=== PATIENT | female | born 1960 | race Caucasian/White ===

== ENCOUNTER 2018-06-13 05:55 | Observation (INO) | payer OTHER ==
--- OUTSIDE RECORDS SUMMARY | 2018-06-13 05:58 | XMS REPORT | Clinical Summary ---
:1960 Author Organization [facility] Address [address] [place] [address] Care Team Providers Name Role Phone Antonio Muñiz MD Primary Care Provider Allergies No Known Allergies Current Medications Prescription Sig. Disp. Refills Start Date End Date Status levothyroxine (SYNTHROID, 02/15/2017 Active LEVOXYL) 125 mcg tablet estradiol (ESTRACE) 2 MG 02/15/2017 Active tablet progesterone (PROMETRIUM) 02/15/2017 Active 100 MG capsule sertraline (ZOLOFT) 50 MG 01/27/2017 Active tablet tiZANidine (ZANAFLEX) 4 MG 01/07/2017 Active tablet telmisartan (MICARDIS) 40 01/27/2017 Active MG tablet aspirin (ECOTRIN) 81 MG Take 81 mg by Active enteric coated tablet mouth daily. cholecalciferol, vitamin Take 2,000 Units Active D3, (VITAMIN D3) 2,000 by mouth daily. unit capsule capsule Active Problems Problem Noted Date Other spondylosis with radiculopathy, lumbar region 02/15/2017 Family History Medical History Relation Name Comments Cancer Father lung Relation Name Status Comments Father Mother Social History Tobacco Use Types Packs/Day Years Used Date Never Smoker Smokeless Tobacco: Never Used Alcohol Use Drinks/Week oz/Week Comments Yes 1 Standard drinks or equivalent 0.6 Sex Assigned at Date Recorded Not on file Last Filed Vital Signs Not on file Plan of Treatment Health Maintenance Due Date Last Done Comments CERVICAL CANCER SCREENING 1982 BREAST CANCER SCREENING 2011 COLON CANCER SCREENING 2011 SHINGRIX VACCINE (#1) 2011 INFLUENZA VACCINE 06/11/2018 Results Not on fileafter 06/12/2017 Insurance Payer Benefit Plan / Group Subscriber ID Type Phone Address [facility] CHOICE/CHOICE + xxxxxxxxx HMO/PPO [place] JUDY [phone] [place] [phone]
[2018-06-13 06:21] LABS: Absolute Monocytes 0.4 K/uL (0.1-1.3); Absolute Neutrophil 3.6 K/uL (1.8-8.0); Basophils % 0.8 % (0-1.3); Eosinophils % 4.7 % (0-4.4); Hematocrit 39.8 % (36.0-45.0); Lymphocytes % 31.4 % (15.3-44.8); MCH 31.6 pg (27.0-35.0); MCV 89.3 fL (80-100); MPV 9.2 fL (7.6-11.3); Monocytes % 6.9 % (3.3-12.3); RBC Red Blood Cell Count 4.45 M/uL (3.86-4.86)
[2018-06-13] MEDS ORDERED: NITROGLYCERIN 0.4 MG/TAB SL ONE (06:41)
[2018-06-13] MEDS ORDERED: ASPIRIN 81 MG CHEWABLE TABLET ONE (06:41)
[2018-06-13 06:42] LABS: Protime INR 0.93
[2018-06-13 06:54] LABS: Albumin 3.7 g/dL (3.4-5.0); Bilirubin Direct 0.1 mg/dL (0-0.2); Bilirubin Total 0.5 mg/dL (0.2-1.0); CKMB Creatine Kinase MB 2.7 ng/mL (0.3-3.6); Magnesium 1.9 mg/dL (1.8-2.4); Potassium 3.9 mmol/L (3.5-5.1); Protein, Total 7.6 g/dL (6.4-8.2)
--- NOTE | 2018-06-13 07:10 | EDPHYS ---
Physician Documentation [facility] Name: Swathi Jay Age: 57 yrs Sex: Female : 1960 Arrival Date: 06/13/2018 Time: 05:56 Bed 18 Private MD: Antonio Muñiz V ED Physician Mumtaz Toney HPI: 06/13 06:33 This 57 yrs old Female presents to ER via Ambulatory with complaints of Chest jr8 Pain. 06:33 Onset: The symptoms/episode began/occurred acutely, this morning, today. Associated jr8 signs and symptoms: Pertinent positives: shortness of breath, nausea. Modifying factors: The patient symptoms are alleviated by nothing, the patient symptoms are aggravated by nothing. The patient has not experienced similar symptoms in the past. The patient has not recently seen a physician. While driving to gym had sudden onset chest pain with shortness of breath . Historical: - Allergies: 06:05 Demerol; bb - Home Meds: 06:14 Celecoxib Oral [Active]; levothyroxine oral [Active]; sertraline 50 mg oral tab 1 tab bb once daily [Active]; telmisartan 40 mg oral tab 1 tab once daily [Active]; aspirin 81 mg Oral chew 1 tab once daily [Active]; HRT [Active]; - PMHx: 06:05 Diabetes - NIDDM; Hypertension; bb - PSHx: 06:05 knee replacement; oophorectomy; bb - Immunization history:: Adult Immunizations up to date. - Social history:: Smoking status: Patient/guardian denies using tobacco, Patient/guardian denies using alcohol, street drugs. - Ebola Screening: : No symptoms or risks identified at this time. ROS: 06:33 Eyes: Negative for injury, pain, redness, and discharge, ENT: Negative for injury, jr8 pain, and discharge, Neck: Negative for injury, pain, and swelling, Abdomen/GI: Negative for abdominal pain, nausea, vomiting, diarrhea, and constipation, Back: Negative for injury and pain, MS/Extremity: Negative for injury and deformity, Skin: Negative for injury, rash, and discoloration, Neuro: Negative for headache, weakness, numbness, tingling, and seizure. 06:33 Cardiovascular: Positive for chest pain, Negative for edema, orthopnea, palpitations, paroxysmal nocturnal dyspnea. 06:33 Respiratory: Positive for shortness of breath, Negative for cough, dyspnea on exertion, hemoptysis, orthopnea, pleurisy, sputum production, wheezing. 06:33 Abdomen/GI: Positive for nausea, Negative for abdominal pain, vomiting, diarrhea, constipation, abdominal cramps, abdominal distension. Exam: 06:33 Eyes: Pupils equal round and reactive to light, extra-ocular motions intact. Lids and jr8 lashes normal. Conjunctiva and sclera are non-icteric and not injected. Cornea within normal limits. Periorbital areas with no swelling, redness, or edema. ENT: Nares patent. No nasal discharge, no septal abnormalities noted. Tympanic membranes are normal and external auditory canals are clear. Oropharynx with no redness, swelling, or masses, exudates, or evidence of obstruction, uvula midline. Mucous membranes moist. Neck: Trachea midline, no thyromegaly or masses palpated, and no cervical lymphadenopathy. Supple, full range of motion without nuchal rigidity, or vertebral point tenderness. No Meningismus. Chest/axilla: Normal chest wall appearance and motion. Nontender with no deformity. No lesions are appreciated. Cardiovascular: Regular rate and rhythm with a normal S1 and S2. No gallops, murmurs, or rubs. Normal PMI, no JVD. No pulse deficits. Respiratory: Lungs have equal breath sounds bilaterally, clear to auscultation and percussion. No rales, rhonchi or wheezes noted. No increased work of breathing, no retractions or nasal flaring. Abdomen/GI: Soft, non-tender, with normal bowel sounds. No distension or tympany. No guarding or rebound. No evidence of tenderness throughout. Back: No spinal tenderness. No costovertebral tenderness. Full range of motion. Skin: Warm, dry with normal turgor. Normal color with no rashes, no lesions, and no evidence of cellulitis. MS/ Extremity: Pulses equal, no cyanosis. Neurovascular intact. Full, normal range of motion. Neuro: Awake and alert, GCS 15, oriented to person, place, time, and situation. Cranial nerves II-XII grossly intact. Motor strength 5/5 in all extremities. Sensory grossly intact. Cerebellar exam normal. Normal gait. 06:33 ECG was reviewed by the Attending Physician. Vital Signs: 06:05 BP 177 / 92; Pulse 80; Resp 20 S; Temp 97.7(O); Pulse Ox 100% on R/A; Weight 86.18 kg bb (R); Height 5 ft. 3 in. (160.02 cm) (R); Pain 9/10; 06:30 BP 139 / 81; Pulse 64; Resp 18 S; Pulse Ox 100% on R/A; bs1 06:41 BP 122 / 73; Pulse 66; Resp 18 S; Pulse Ox 99% on R/A; bs1 06:50 BP 113 / 72; Pulse 73; Resp 17; Pulse Ox 100% on R/A; Pain 2/10; bs1 06:53 BP 113 / 72; Pulse 73; Pain 2/10; bs1 08:10 BP 122 / 68; Pulse 58; Resp 17; Pulse Ox 98% on R/A; tw2 08:24 BP 133 / 69; Pulse 58; Resp 14; Pulse Ox 99% on R/A; tw2 06:05 Body Mass Index 33.66 (86.18 kg, 160.02 cm) MDM: 06:18 Patient medically screened. jr8 07:03 Data reviewed: vital signs, nurses notes, lab test result(s), EKG, radiologic studies, jr8 plain films, and as a result, I will admit patient. Data interpreted: Pulse oximetry: on room air is 100 %. Interpretation: normal. Counseling: I had a detailed discussion with the patient and/or guardian regarding: the historical points, exam findings, and any diagnostic results supporting the discharge/admit diagnosis, lab results, radiology results, the need for further work-up and treatment in the hospital. 07:04 Differential diagnosis: abnormal EKG, acute myocardial infarction, anxiety, chest wall jr8 pain, congestive heart failure costochondritis, esophagitis, gastritis, gastroesophageal reflux disease (GERD), pancreatitis, pericarditis, pleurisy, pneumonia, pneumothorax, pulmonary embolus, stable angina, thoracic aortic disection, unstable angina. HEART Score: History: Moderately Suspicious (1), ECG: Normal (0), Age: > 45 and < 65 years (1), Risk Factors: > or = 3 Risk factors for atherosclerotic disease (2), [Hypertension] [DM] [Obesity]. The patient was given aspirin in the Emergency Department. 07:10 ED course: Dr. Muñiz was notified about admission at 07:10. Message left to call us jr8 back in ED . 06/13 05:59 Order name: Basic Metabolic Panel; Complete Time: 06:55 tl2 06/13 05:59 Order name: CBC with Diff; Complete Time: 06:32 tl2 06/13 05:59 Order name: Ckmb; Complete Time: 06:55 tl2 06/13 05:59 Order name: CPK; Complete Time: 06:55 tl2 06/13 05:59 Order name: LFT's; Complete Time: 06:55 tl2 06/13 05:59 Order name: Magnesium; Complete Time: 06:55 tl2 06/13 05:59 Order name: NT PRO-BNP; Complete Time: 06:55 tl2 06/13 05:59 Order name: PT-INR; Complete Time: 06:55 tl2 06/13 05:59 Order name: Ptt, Activated; Complete Time: 06:55 tl2 06/13 05:59 Order name: Troponin (emerg Dept Use Only); Complete Time: 06:55 tl2 06/13 05:59 Order name: XRAY Chest (1 view); Complete Time: 07:47 tl2 06/13 06:35 Order name: DD; Complete Time: 07:03 jr8 06/13 05:59 Order name: EKG; Complete Time: 06:00 tl2 06/13 05:59 Order name: Cardiac monitoring; Complete Time: 06:09 tl2 06/13 05:59 Order name: EKG - Nurse/Tech; Complete Time: 06:09 tl2 06/13 05:59 Order name: IV Saline Lock; Complete Time: 06:09 tl2 06/13 06:00 Order name: Labs collected and sent; Complete Time: 06:09 tl2 06/13 06:00 Order name: O2 Per Protocol; Complete Time: 06:09 tl2 06/13 06:00 Order name: O2 Sat Monitoring; Complete Time: 06:09 tl2 06/13 07:15 Order name: CONS Physician Consult EDMS EC:33 Rate is 76 beats/min. Rhythm is regular, Normal Sinus Rhythm. QRS [place] is Normal. [place] jr8 interval is normal at 150 msec. QRS interval is normal at 82 msec. QT interval is normal at 465 msec. Q waves are Present in leads III, V3. T waves are Inverted in lead III. No ST changes noted. Clinical impression: NSR w/ Non-specific ST/T Changes. Interpreted by me. Reviewed by me. Administered Medications: 06:35 Drug: Aspirin Chewable Tablet 324 mg Route: PO; bs1 06:54 Follow up: Response: No adverse reaction bs1 06:35 Drug: Nitroglycerin 0.4 mg Route: Sublingual; bs1 06:40 Drug: Nitroglycerin 0.4 mg Route: Sublingual; bs1 06:53 Follow up: BP 113 / 72; Pulse 73 bpm; Pain 2/10 Adult; Response: No adverse reaction bs1 Point of Care Testing: Blood Glucose: 06:08 Blood Glucose: 132 mg/dL; cb2 Ranges: Critical Glucose Levels:Adult <50 mg/dl or >400 mg/dl <40 mg/dl or >180 mg/dl Disposition: 12:40 Co-signature as Attending Physician, Mumtaz Toney MD I agree with the assessment and kdr plan of care. Disposition: 06/13/18 07:10 Hospitalization ordered by Antonio Muñiz for Observation. Preliminary diagnosis is Chest pain, unspecified. - Bed requested for Telemetry/MedSurg (observation). - Status is Observation. tw2 - Condition is Stable. - Problem is new. - Symptoms have improved. UTI on Admission? No Signatures: Dispatcher [employer] EDMS Mumtaz Toney MD MD [facility] Elsy Royal RN RN bb Aaron Olson PA PA jr8 Christiane Hunter Tara RN RN tw2 Steph Lopez, RN RN tl2 Verona Harris, RN RN bs1 Corrections: (The following items were deleted from the chart) 07:51 07:10 Hospitalization Ordered by Antonio Muñiz MD for Observation. Preliminary diagnosis ag is Chest pain, unspecified. Bed requested for Telemetry/MedSurg (observation). Status is Observation. Condition is Stable. Problem is new. Symptoms have improved. UTI on Admission? No. jr8 08:59 07:51 06/13/2018 07:10 Hospitalization Ordered by Antonio Muñiz MD for Observation. tw2 Preliminary diagnosis is Chest pain, unspecified. Bed requested for Telemetry/MedSurg (observation). Status is Observation. Condition is Stable. Problem is new. Symptoms have improved. UTI on Admission? No. ag
--- NOTE | 2018-06-13 07:10 | ER ---
Nurse's Notes [facility] Name: Swathi Jay Age: 57 yrs Sex: Female : 1960 Arrival Date: 06/13/2018 Time: 05:56 Bed 18 Private MD: Antonio Muñiz V Diagnosis: Chest pain, unspecified Presentation: 06/13 06:03 Presenting complaint: Patient states: she was driving to the gym this morning and bb started having chest pain with nausea and shortness of breath, pain is worse with breathing. Transition of care: patient was not received from another setting of care. Onset of symptoms was June 13, 2018. Risk Assessment: Do you want to hurt yourself or someone else? Patient reports no desire to harm self or others. Initial Sepsis Screen: Does the patient meet any 2 criteria? No. Patient's initial sepsis screen is negative. Does the patient have a suspected source of infection? No. Patient's initial sepsis screen is negative. Care prior to arrival: None. 06:03 Method Of Arrival: Ambulatory bb 06:03 Acuity: NICO 3 bb Historical: - Allergies: 06:05 Demerol; bb - Home Meds: 06:14 Celecoxib Oral [Active]; levothyroxine oral [Active]; sertraline 50 mg oral tab 1 tab bb once daily [Active]; telmisartan 40 mg oral tab 1 tab once daily [Active]; aspirin 81 mg Oral chew 1 tab once daily [Active]; HRT [Active]; - PMHx: 06:05 Diabetes - NIDDM; Hypertension; bb - PSHx: 06:05 knee replacement; oophorectomy; bb - Immunization history:: Adult Immunizations up to date. - Social history:: Smoking status: Patient/guardian denies using tobacco, Patient/guardian denies using alcohol, street drugs. - Ebola Screening: : No symptoms or risks identified at this time. Screenin:16 Abuse screen: Denies threats or abuse. Denies injuries from another. Nutritional bs1 screening: No deficits noted. Tuberculosis screening: No symptoms or risk factors identified. Fall Risk None identified. Assessment: 06:02 General: Appears in no apparent distress. uncomfortable, Behavior is cooperative, bs1 appropriate for age, anxious. Pain: Complains of pain in chest Pain does not radiate. Pain began 1 hour ago. Neuro: Level of Consciousness is awake, alert, obeys commands, Oriented to person, place, time, situation, Appropriate for age. Cardiovascular: Reports chest pain, Denies lightheadedness, nausea, shortness of breath, Heart tones S1 S2 present Capillary refill < 3 seconds Patient's skin is warm and dry. Respiratory: Airway is patent Trachea midline Respiratory effort is even, unlabored, Respiratory pattern is regular, symmetrical, Breath sounds are clear bilaterally. GI: No signs and/or symptoms were reported involving the gastrointestinal system. : No signs and/or symptoms were reported regarding the genitourinary system. EENT: No signs and/or symptoms were reported regarding the EENT system. Derm: Skin is intact, Skin is pink, warm \\T\\ dry. normal. Musculoskeletal: Circulation, motion, and sensation intact. Capillary refill < 3 seconds, Range of motion: intact in all extremities. 06:52 Reassessment: Patient appears in no apparent distress at this time. Patient and/or bs1 family updated on plan of care and expected duration. Pain level reassessed. Patient is alert, oriented x 3, equal unlabored respirations, skin warm/dry/pink. Informed ALISA Olson that patient states "I feel a whole lot better than I did." Patient was given x2 nitro. #rd dose held due to blood pressure. Informed Provider. Patient states feeling better. Patient states symptoms have improved. 07:02 Reassessment: Report given to DARCIE Funez. bs1 08:11 Reassessment: Patient appears in no apparent distress at this time. Patient and/or tw2 family updated on plan of care and expected duration. Pain level reassessed. Patient is alert, oriented x 3, equal unlabored respirations, skin warm/dry/pink. Dr. Khalil at bedside at this time. Vital Signs: 06:05 BP 177 / 92; Pulse 80; Resp 20 S; Temp 97.7(O); Pulse Ox 100% on R/A; Weight 86.18 kg bb (R); Height 5 ft. 3 in. (160.02 cm) (R); Pain 9/10; 06:30 BP 139 / 81; Pulse 64; Resp 18 S; Pulse Ox 100% on R/A; bs1 06:41 BP 122 / 73; Pulse 66; Resp 18 S; Pulse Ox 99% on R/A; bs1 06:50 BP 113 / 72; Pulse 73; Resp 17; Pulse Ox 100% on R/A; Pain 2/10; bs1 06:53 BP 113 / 72; Pulse 73; Pain 2/10; bs1 08:10 BP 122 / 68; Pulse 58; Resp 17; Pulse Ox 98% on R/A; tw2 08:24 BP 133 / 69; Pulse 58; Resp 14; Pulse Ox 99% on R/A; tw2 06:05 Body Mass Index 33.66 (86.18 kg, 160.02 cm) bb ED Course: 05:56 Patient arrived in ED. es 05:56 Verona Harris, DARCIE is Primary Nurse. bs1 05:56 Antonio Muñiz MD is Private Physician. es 06:00 EKG completed in triage. Results shown to MD. bb 06:02 Inserted saline lock: 20 gauge in left antecubital area, using aseptic technique. Blood bs1 collected. 06:02 Patient maintains SpO2 saturation greater than 95% on room air. bs1 06:04 Triage completed. bb 06:05 Arm band placed on Patient placed in an exam room, on a stretcher, on cardiac rehabilitation program director, bb on pulse oximetry. 06:17 Patient has correct armband on for positive identification. Placed in gown. Bed in low bs1 position. Call light in reach. groundwater monitoring technician on. Pulse ox on. NIBP on. Warm blanket given. 06:18 Aaron Olson PA is PHCP. jr8 06:18 Mumtaz Toney MD is Attending Physician. jr8 06:24 X-ray completed. Portable x-ray completed in exam room. Patient tolerated procedure kw well. 06:25 XRAY Chest (1 view) In Process Unspecified. EDMS 07:10 Antonio Muñiz MD is Hospitalizing Provider. jr8 07:12 Primary Nurse role handed off by Verona Harris RN tw2 07:12 Dee Dee Vital RN is Primary Nurse. tw2 08:11 No provider procedures requiring assistance completed. Patient admitted, IV remains in tw2 place. Administered Medications: 06:35 Drug: Aspirin Chewable Tablet 324 mg Route: PO; bs1 06:54 Follow up: Response: No adverse reaction bs1 06:35 Drug: Nitroglycerin 0.4 mg Route: Sublingual; bs1 06:40 Drug: Nitroglycerin 0.4 mg Route: Sublingual; bs1 06:53 Follow up: BP 113 / 72; Pulse 73 bpm; Pain 2/10 Adult; Response: No adverse reaction bs1 Point of Care Testing: Blood Glucose: 06:08 Blood Glucose: 132 mg/dL; cb2 Ranges: Outcome: 07:10 Decision to Hospitalize by Provider. jrRadha 08:24 Admitted to Med/surg accompanied by tech, via wheelchair, room 212, Report called to jeffry Ulloa RN 08:24 Condition: stable 08:24 Instructed on the need for admit. 08:59 Patient left the ED. 2 Signatures: Dispatcher [employer] Dacia Coffey Brenda, RN RN bb Venita Patiño Josh, PA PA jr8 Dee Dee Vital RN RN tw2 Atul Haro [facility] Verona Harris RN RN bs1
--- NOTE | 2018-06-13 07:46 | RAD REPORT ---
EXAM DESCRIPTION: Rafaela Single View06/13/2018 6:25 am CLINICAL HISTORY: Chest pain COMPARISON: 2016 FINDINGS: The lungs appear clear of acute infiltrate. The heart is normal size IMPRESSION: No acute abnormalities displayed
[2018-06-13] MEDS ORDERED: GLUCAGON 1 MG/VIAL IM PRN (08:25)
[2018-06-13] MEDS ORDERED: MORPHINE 4 MG/ML SYR IV PRN (08:25)
[2018-06-13] MEDS ORDERED: D50W 25 GM/50 ML SYRINGE IV PRN (08:25)
[2018-06-13] MEDS ORDERED: ONDANSETRON 4 MG/2 ML VIAL IV PRN (08:25)
[2018-06-13] MEDS: INSULIN -REGULAR HUMAN 50 UNIT/0.5 ML ML SQ SCH ×4 (08:25→21:00)
[2018-06-13] MEDS ORDERED: NITROGLYCERIN 0.4 MG/TAB SL PRN (08:25)
[2018-06-13] MEDS: ASPIRIN EC 81 MG TAB PO SCH (09:00)
--- NOTE | 2018-06-13 09:09 | ECHO ---
HEIGHT: 5 ft 3 in WEIGHT: 190 lb 0 oz DATE OF STUDY: 06/13/[address]: 2-DIMENSIONAL: YES M.MODE: YES DOPPLER: YES COLOR FLOW: YES TDS: NO PORTABLE: NO DEFINITY: NO BUBBLE STUDY: NO DIAGNOSIS: CHEST PAIN CARDIAC HISTORY: CATHERIZATION: NO SURGERY: NO PROSTHETIC VALVE: NO PACEMAKER: NO MEASUREMENTS (cm) DIASTOLIC (NORMALS) SYSTOLIC (NORMALS) IVSd 1.0 (0.6-1.2) LA Diam (1.9-4.0) LVEF 69% LVIDd 4.1 (3.5-5.7) LVIDs 2.5 (2.0-3.5) %FS 38% LVPWd 0.9 (0.6-1.2) Ao Diam 3.1 (2.0-3.7) 2 DIMENSIONAL ASSESSMENT: RIGHT ATRIUM: NORMAL LEFT ATRIUM: NORMAL RIGHT VENTRICLE: NORMAL LEFT VENTRICLE: NORMAL TRICUSPID VALVE: NORMAL MITRAL VALVE: NORMAL PULMONIC VALVE: NORMAL AORTIC VALVE: NORMAL PERICARDIAL EFFUSION: NONE AORTIC ROOT: NORMAL LEFT VENTRICULAR WALL MOTION: NORMAL. DOPPLER/COLOR FLOW: MILD TRICUSPID REGURGITATION. NORMAL RIGHT VENTRICULAR SYSTOLIC PRESSURE. NORMAL LEFT VENTRICULAR RELAXATION. COMMENTS: NORMAL 2D ECHOCARDIOGRAM. MILD TRICUSPID REGURGITATION OTHERWISE NORMAL STUDY. TECHNOLOGIST: FANI RIVERA
[2018-06-13 09:32] LABS: Urine Appearance CLEAR; Urine Bilirubin NEGATIVE (NEG); Urine Blood 1+ (NEG); Urine Color YELLOW; Urine Glucose NEGATIVE (NEG); Urine Protein NEGATIVE (NEG); Urine Specific Gravity >=1.030 (1.005-1.030); Urine Urobilinogen 0.2 mg/dL (0.2-1.0)
[2018-06-13 09:34] LABS: Urine Microscopic Reflex ORDER UMIC
--- NOTE | 2018-06-13 09:46 | CON ---
History Of Present Illness: Ms. Jay is 57. She felt well until this morning. She was driving and had the sudden onset of chest pressure when she came to the ER EKGs, vital signs are all normal. Marissa moore has had a variety of blood tests including a rapid troponin, they are all normal as well. This hap pened about 4 hours ago. It is still present. It seems to be in her right shoulder blade as well. The patient has not had any surgeries. She still has gallbladder and appendix within her body. She has never had myocardial infarction or stroke or diabetes or dyslipidemia. Uses no tobacco. She was on her way to work out in the gym when this happened. She had not eaten or drunk anything. She rep orts a drug intolerance to meperidine. As an outpatient, she takes Celebrex, levothyroxine, sertrali ne, telmisartan, aspirin. She has underlying hypertension and hypothyroidism. Physical Examination: General: She is alert, oriented, in some distress from the pain she is experiencing, seems to get li ttle worse when she lays on that side or moves her arm. Lungs: Clear. No carotid bruit. HEART: Within normal limits. Abdomen: Soft. Extremities: Normal. No cyanosis, clubbing, or edema. Vital Signs: Blood pressure 113/72. Impression: This is probably noncardiac pain. If we see any signs that there is any cardiac disease , a cardiac cath might be the best test to do immediately. We will do echocardiogram in the meantime when we are waiting for other tests to come back. I am suspicious this may be a gallbladder attack, so we should do an ultrasound of her abdomen as well. MARISSA/CEM Voice ID: [id number] Report ID: [id number]
[2018-06-13 10:07] LABS: Urine Bacteria 20-50 /HPF (<20); Urine RBC <5 /HPF (NONE SEEN)
[2018-06-13 10:08] LABS: Urine Culture Reflex Order NOT NEEDED; Urine Mucus MOD /HPF (NONE SEEN)
--- NOTE | 2018-06-13 10:18 | RAD REPORT ---
EXAM DESCRIPTION: CT - Angio Aorta For Dissection - 06/13/2018 10:09 am CLINICAL HISTORY: Chest pain COMPARISON: Portable chest June 13 TECHNIQUE: Dynamically enhanced 3 mm thick images of the chest, abdomen, and upper pelvis were obtai stacy during administration of approximately 150mL Isovue 370 IV contrast. Sagittal and coronal reconst ruction images were generated using MIP algorithm and reviewed. Exam utilizes a protocol to evaluate entire course of the aorta. All CT scans are performed using dose optimization technique as appropriate and may include automated exposure control or mA/KV adjustment according to patient size. FINDINGS: Aorta is normal in diameter with no dissection or other acute aortic findings. No aortic c alcifications. Reconstruction images show no significant findings. Pulmonary arteries are normal as well. No cardiomegaly, pericardial thickening or pericardial effusio n. No mass or infiltrate in the lung parenchyma. No pleural thickening, pleural effusion or pneumothorax . No abnormal mediastinal or hilar mass or lymphadenopathy seen. No chest wall mass or abnormal axillar y lymphadenopathy. Celiac, SMA and renal arteries show no suspicious findings. Solid abdominal viscera and bowel show no significant findings. No abnormal lymphadenopathy or suspicious mass. No free air, free fluid or in flammatory stranding. No urinary bladder abnormality. No ovarian abnormality. Heterogeneous uterus i s seen likely indicating 1 or more moderate-sized fibroids. No acute or destructive bone process. Patient has advanced degenerative change at the L2-3 level with disc space narrowing, spurring and sclerotic change to the vertebral bodies abutting the disc space. Pathologic etiology is not suspected. IMPRESSION: Negative CT scan of the aorta. No acute or suspicious finding in the chest, abdomen or pelvis. Advanced for age degenerative change involves the L2-3 disc space.
[2018-06-13] MEDS: ACETAMINOPHEN 500 MG TAB PO PRN ×2 (10:55→22:44)
--- NOTE | 2018-06-13 11:40 | EKG ---
Test Date: 2018-06-13 Test Time: 06:00:34 Retail Salesman: RALF MEASUREMENT RESULTS: Intervals: Rate: 76 SC: 150 QRSD: 82 QT: 414 QTc: 465 [place]: P: 38 SC: 150 QRS: 24 T: 20 INTERPRETIVE STATEMENTS: Normal sinus rhythm with sinus arrhythmia Cannot rule out Anterior infarct, age undetermined Abnormal ECG Compared to ECG 09/18/2015 12:41:17 questionable myocardial infarct finding now present Electronically Signed On 06-13-18 11:40:07 CDT by Haroon Khalil
[2018-06-13] MEDS ORDERED: SODIUM CHLORIDE 0.9% 10ML INJ IV PRN (12:55)
[2018-06-13] MEDS ORDERED: NA CHLORIDE 0.9% 500 ML IV ONE (13:36)
[2018-06-13] MEDS ORDERED: LIDOCAINE 1% MPF 5 ML VIAL ONE (13:47)
[2018-06-13] MEDS ORDERED: METHOCARBAMOL 750 MG TAB PO PRN (17:13)
--- NOTE | 2018-06-13 19:37 | P.HP ---
Certification for Inpatient Patient admitted to: Observation With expected LOS: <2 Midnights Practitioner: I am a practitioner with admitting privileges, knowledge of patient current condition, hospital course, and medical plan of care. Services: Services provided to patient in accordance with Admission requirements found in Title 42 Section 412.3 of the Code of Federal Regulations Patient History Date of Service: 06/13/18 Reason for admission: CHEST PAIN History of Present Illness: MS ALLISON HAS CHEST HEAVINESS WITH JAW PAIN ALSO. SUDDEN, NOT EXERSIONAL, HAD NO NAUSEA, VOMITING OR DIAPHORESIS. THIS HAPPENED THIS AM. Allergies meperidine HCl [From Demerol] Allergy (Verified 06/13/18 10:47) Unknown Home Medications: Celecoxib [Celebrex*] 200 mg PO DAILY 06/13/18 Estradiol [Estrace] 2 mg PO DAILY 06/13/18 Levothyroxine Sodium [Synthroid] 150 mcg PO DAILY 06/13/18 Methocarbamol [Robaxin] 750 mg PO TID PRN 06/13/18 Sertraline HCl 50 mg PO DAILY 06/13/18 Telmisartan [Micardis] 40 mg PO DAILY 06/13/18 - Past Medical/Surgical History Has patient received pneumonia vaccine in the past: No Diabetic: Yes -: DM -: Hypertension -: hypertlipidemia -: hypthyroidism -: bilateral knee replacements -: achillis tendon repair -: TMJ repair -: overy removal - Social History Smoking Status: Never smoker Alcohol use: Yes CD- Drugs: No Caffeine use: Yes Place of Residence: Home Review of Systems 10-point ROS is otherwise unremarkable Physical Examination - Vital Signs Temperature: 97.0 F Blood Pressure: 122/72 Pulse: 65 Respirations: 16 Pulse Ox (%): 97 - Physical Exam General: Mild distress, Obese HEENT: Atraumatic, PERRLA, Mucous membr. moist/pink, EOMI, Sclerae nonicteric Neck: Supple, 2+ carotid pulse no bruit, No LAD, Without JVD or thyroid abnormality Respiratory: Clear to auscultation bilaterally, Normal air movement Cardiovascular: Regular rate/rhythm, Normal S1 S2 Gastrointestinal: Normal bowel sounds, No tenderness Musculoskeletal: No tenderness Integumentary: No rashes Neurological: Normal gait, Normal speech, Normal strength at 5/5 x4 extr, Normal tone, Normal affect Lymphatics: No axilla or inguinal lymphadenopathy - Studies Laboratory Data (last 24 hrs) 06/13/18 06:02: PT 11.0, INR 0.93, APTT 31.4 06/13/18 06:02: WBC 6.3, Hgb 14.1, Hct 39.8, Plt Count 191 06/13/18 06:02: Sodium 141, Potassium 3.9, BUN 27 H, Creatinine 0.80, Glucose 128 H, Magnesium 1.9, Total Bilirubin 0.5, AST 20, ALT 29, Alkaline Phosphatase 66 Assessment and Plan - Problems (Diagnosis) (1) HTN (hypertension) Current Visit: Yes Status: Acute Plan: STABLE AT HOME WILL FU DM OFF MEDS NOW. (2) Chest pain Onset Date: 06/13/18 Current Visit: Yes Status: Acute Plan: THIS COULD BE CARDIAC IN ORIGIN. LOVENOX, ASPIRIN , OXYGEN. CT CHEST NEGATIVE FOR DISSECTION CE NEGATIVE DR. BATES TO DO CATH SOON SHE MAY NOT NEED TO STAY HERE FOR IT. WILL DECIDE IN AM - Advance Directives Does patient have a Living Will: No Does patient have a Durable POA for Healthcare: No
--- NOTE | 2018-06-13 22:27 | RAD REPORT ---
EXAM DESCRIPTION: US - Abdomen Exam Complete - 06/13/2018 9:33 pm CLINICAL HISTORY: chest and shoulder pain, r/o galstones COMPARISON: None. FINDINGS: Gallbladder size is normal. No gallstones, wall thickening or pericholecystic fluid. A 4-5 mm echogenic focus adherent to the gallbladder wall is probably a polyp rather than nonshadowing sto ne. Common bile duct is normal with no common duct stone identified. Liver and spleen show no focal a bnormalities. Liver echogenicity is slightly increased. This is similar to comparison and may represe nt a borderline or mild fatty infiltration. Liver is 14 cm in maximum dimension. Spleen is also 14 cm . The pancreas is normal. No hydronephrosis or suspicious mass in either kidney. Aorta is normal is size. No ascites or bulky lymphadenopathy. No IVC abnormality. IMPRESSION: Small gallbladder polyp. No other gallbladder or biliary tree finding. Borderline or mild fatty infiltration the liver. No focal liver lesions seen. Spleen is upper normal in size. No focal splenic finding.
[2018-06-13] MEDS: ENOXAPARIN 40 MG/0.4 ML SQ SCH (22:41)
[2018-06-13] MEDS: PANTOPRAZOLE 40 MG INJ IVP SCH (22:42)
[2018-06-14 05:02] LABS: Absolute Lymphocytes (CBC) 1.6 K/uL (0.7-4.9); Absolute Monocytes 0.4 K/uL (0.1-1.3); Basophils % 0.5 % (0-1.3); Eosinophils % 3.7 % (0-4.4); Hematocrit 34.9 % (36.0-45.0); Lymphocytes % 25.8 % (15.3-44.8); MCH 32.3 pg (27.0-35.0); MCV 90.3 fL (80-100); MPV 9.2 fL (7.6-11.3); Monocytes % 6.6 % (3.3-12.3); RBC Red Blood Cell Count 3.87 M/uL (3.86-4.86)
[2018-06-14 05:27] LABS: Potassium 3.9 mmol/L (3.5-5.1)
[2018-06-14] MEDS: LEVOTHYROXINE SOD 0.075 MG TAB PO SCH ×2 (06:02→09:06)
[2018-06-14] MEDS: INSULIN -REGULAR HUMAN 50 UNIT/0.5 ML ML SQ SCH (07:30)
[2018-06-14] MEDS ORDERED: SERTRALINE HCL 50 MG TAB PO SCH (09:00)
[2018-06-14] MEDS ORDERED: VALSARTAN 80 MG TAB PO SCH (09:00)
[2018-06-14] MEDS ORDERED: CELECOXIB 100 MG CAPSULE PO SCH (09:00)
[2018-06-14] MEDS: PANTOPRAZOLE 40 MG INJ IVP SCH (09:05)
[2018-06-14] MEDS: ASPIRIN EC 81 MG TAB PO SCH (09:05)
[2018-06-14] MEDS: ENOXAPARIN 40 MG/0.4 ML SQ SCH (09:07)
--- NOTE | 2018-06-14 09:38 | P.DS ---
Admission Date: 06/13/18 Discharge Date: 06/14/18 Disposition: ROUTINE DISCHARGE Discharge Condition: FAIR Reason for Admission: CHEST PAIN - Problems (1) HTN (hypertension) Current Visit: Yes Status: Acute (2) Chest pain Onset Date: 06/13/18 Current Visit: Yes Status: Acute Brief History of Present Illness: MS ALLISON HAS CHEST HEAVINESS WITH JAW PAIN ALSO. SUDDEN, NOT EXERSIONAL, HAD NO NAUSEA, VOMITING OR DIAPHORESIS. THIS HAPPENED THIS AM. MS ALLISON IS DOING GREAT. HAS NO CHEST PAIN. I GAVE HER PROTONIX IV AND IT HELPED TO RELIEVE PAIN. SHE HAD ECHO, SONOGRAM OF ABD ALL NEGATIVE. SHE WILL GET OUTPATIENT ST TEST OR CATH BY DR BATES. SHE WILL CALLHIM. SHE HAS BEEN TO HIS OFFICE BEFORE. Vital Signs/Physical Exam: Temp Pulse Resp BP Pulse Ox 96.2 F L 54 18 134/67 98 06/14/18 08:00 06/14/18 09:06 06/14/18 08:00 06/14/18 09:06 06/14/18 08:00 Laboratory Data at Discharge: WBC 6.4 K/uL (4.3-10.9) 06/14/18 04:31 Hgb 12.5 g/dL (12.0-15.0) 06/14/18 04:31 Hct 34.9 % (36.0-45.0) L 06/14/18 04:31 Plt Count 172 K/uL (152-406) 06/14/18 04:31 PT 11.0 SECONDS (9.5-12.5) 06/13/18 06:02 INR 0.93 06/13/18 06:02 APTT 31.4 SECONDS (24.3-36.9) 06/13/18 06:02 Sodium 141 mmol/L (136-145) 06/14/18 04:31 Potassium 3.9 mmol/L (3.5-5.1) 06/14/18 04:31 BUN 22 mg/dL (7-18) H 06/14/18 04:31 Creatinine 0.70 mg/dL (0.55-1.3) 06/14/18 04:31 Glucose 99 mg/dL (74-106) 06/14/18 04:31 Magnesium 1.9 mg/dL (1.8-2.4) 06/13/18 06:02 Total Bilirubin 0.5 mg/dL (0.2-1.0) 06/13/18 06:02 AST 20 U/L (15-37) 06/13/18 06:02 ALT 29 U/L (12-78) 06/13/18 06:02 Alkaline Phosphatase 66 U/L (45-117) 06/13/18 06:02 Troponin I < 0.02 ng/mL (0.0-0.045) 06/13/18 12:13 Home Medications: Celecoxib [Celebrex*] 200 mg PO DAILY 06/13/18 Estradiol [Estrace] 2 mg PO DAILY 06/13/18 Levothyroxine Sodium [Synthroid] 150 mcg PO DAILY 06/13/18 Methocarbamol [Robaxin*] 750 mg PO TID PRN 06/13/18 Sertraline HCl 50 mg PO DAILY 06/13/18 Telmisartan [Micardis] 40 mg PO DAILY 06/13/18 Patient Discharge Instructions: TAKE RANITIDINE TWICE A DAY. CALL DR. BATES SATURDAY AT HIS OFFICE FOR FURTHER TESTING IF HE WANTS TO DO.
--- NOTE | 2018-06-14 11:50 | PN ---
She has had a negative cardiac workup. We never did a heart cath or a stress test, but all of her sy mptoms went away with proton pump inhibitors and eating. I think at this point, we do not want to do an emergency heart catheterization but go with what we found and perhaps do an outpatient stress zelalem t or cardiac cath later. In my opinion, it is okay if she is discharged today or tomorrow and does a n outpatient workup if she remains stable. JUAN ANTONIO Voice ID: [id number] Report ID: [id number]
== END 2018-06-14 10:53 | disposition home or self-care (01) ==
LOC: ER 05:55 → ERHOLD 07:14 → 2ND 08:25
PROVIDERS: ADMIT Internal Medicine; ATTEND Internal Medicine
DX: R07.9 Chest pain, unspecified (principal); I10 Essential (primary) hypertension; E03.9 Hypothyroidism, unspecified; E78.5 Hyperlipidemia, unspecified; E66.9 Obesity, unspecified; Z68.33 Body mass index [BMI] 33.0-33.9, adult; Z79.82 Long term (current) use of aspirin
CPT/HCPCS: 36415; 71045; 71275; 74175; 76700; 80048; 80076; 81003; 81015; 82550; 82553; 82962; 83735; 83880; 84484; 85025; 85379; 85610; 85730; 93005; 93306; 99285; C9113; G0378; J1650; Q9967

== ENCOUNTER 2018-06-15 11:14 | Emergency (ER) | payer OTHER ==
--- OUTSIDE RECORDS SUMMARY | 2018-06-15 11:16 | XMS REPORT | Clinical Summary ---
:1960 Author Organization [facility] Address [address] [place] [address] Care Team Providers Name Role Phone Antonio [...] INFLUENZA VACCINE 06/11/2018 Results Not on fileafter 06/14/2017 Insurance Payer Benefit Plan / Group Subscriber ID Type Phone Address [facility] CHOICE/CHOICE + xxxxxxxxx HMO/PPO Jansen JUDY [phone] [place] [phone]
[2018-06-15] MEDS ORDERED: DOXYCYCLINE 100 MG CAP PO ONE (12:02)
[2018-06-15] MEDS ORDERED: SMZ./TMP. 800/160 MG TABLET ONE (12:02)
--- NOTE | 2018-06-15 12:45 | EDPHYS ---
Physician Documentation [facility] Name: Swathi Jay Age: 57 yrs Sex: Female : 1960 Arrival Date: 06/15/2018 Time: 11:19 Bed 14 Private MD: Antonio Muñiz V ED Physician Sudhir Peoples HPI: 06/15 11:51 This 57 yrs old Female presents to ER via Ambulatory with complaints of IV philipp sight infected. 11:51 The patient or guardian complains of decreased range of motion, running out of philipp medications: swelling. The complaints affect the left antecubital area. Context: The problem was sustained at home. Onset: The symptoms/episode began/occurred 2 day(s) ago. Treatment prior to arrival includes: no previous treatment. Modifying factors: The symptoms are alleviated by remaining still, the symptoms are aggravated by movement, bending arm. Associated signs and symptoms: Pertinent positives: of the . Historical: - Allergies: 11:30 Demerol; iw - Home Meds: 11:30 aspirin 81 mg Oral chew 1 tab once daily [Active]; Celecoxib Oral [Active]; HRT iw [Active]; levothyroxine oral [Active]; sertraline 50 mg Oral tab 1 tab once daily [Active]; telmisartan 40 mg Oral tab 1 tab once daily [Active]; - PMHx: 11:30 Diabetes - NIDDM; Hypertension; iw - PSHx: 11:30 knee replacement; oophorectomy; iw - Immunization history:: Adult Immunizations not up to date. - Social history:: Smoking status: Patient/guardian denies using tobacco. - Ebola Screening: : Patient negative for fever greater than or equal to 101.5 degrees Fahrenheit, and additional compatible Ebola Virus Disease symptoms Patient denies exposure to infectious person Patient denies travel to an Ebola-affected area in the 21 days before illness onset No symptoms or risks identified at this time. - Family history:: not pertinent. ROS: 11:51 Constitutional: Negative for fever, chills, and weight loss, Eyes: Negative for injury, philipp pain, redness, and discharge, ENT: Negative for injury, pain, and discharge, Neck: Negative for injury, pain, and swelling, Cardiovascular: Negative for chest pain, palpitations, and edema, Respiratory: Negative for shortness of breath, cough, wheezing, and pleuritic chest pain, Abdomen/GI: Negative for abdominal pain, nausea, vomiting, diarrhea, and constipation, Back: Negative for injury and pain, : Negative for injury, bleeding, discharge, and swelling, Skin: Negative for injury, rash, and discoloration, Neuro: Negative for headache, weakness, numbness, tingling, and seizure, Psych: Negative for depression, anxiety, suicide ideation, homicidal ideation, and hallucinations, Allergy/Immunology: Negative for hives, rash, and allergies, Endocrine: Negative for neck swelling, polydipsia, polyuria, polyphagia, and marked weight changes, Hematologic/Lymphatic: Negative for swollen nodes, abnormal bleeding, and unusual bruising. 11:51 MS/extremity: Positive for pain, swelling, tenderness, of the left antecubital area. Exam: 11:51 Constitutional: This is a well developed, well nourished patient who is awake, alert, philipp and in no acute distress. Head/Face: Normocephalic, atraumatic. Eyes: Pupils equal round and reactive to light, extra-ocular motions intact. Lids and lashes normal. Conjunctiva and sclera are non-icteric and not injected. Cornea within normal limits. Periorbital areas with no swelling, redness, or edema. ENT: Nares patent. No nasal discharge, no septal abnormalities noted. Tympanic membranes are normal and external auditory canals are clear. Oropharynx with no redness, swelling, or masses, exudates, or evidence of obstruction, uvula midline. Mucous membranes moist. Neck: Trachea midline, no thyromegaly or masses palpated, and no cervical lymphadenopathy. Supple, full range of motion without nuchal rigidity, or vertebral point tenderness. No Meningismus. Chest/axilla: Normal chest wall appearance and motion. Nontender with no deformity. No lesions are appreciated. Cardiovascular: Regular rate and rhythm with a normal S1 and S2. No gallops, murmurs, or rubs. Normal PMI, no JVD. No pulse deficits. Respiratory: Lungs have equal breath sounds bilaterally, clear to auscultation and percussion. No rales, rhonchi or wheezes noted. No increased work of breathing, no retractions or nasal flaring. Abdomen/GI: Soft, non-tender, with normal bowel sounds. No distension or tympany. No guarding or rebound. No evidence of tenderness throughout. Back: No spinal tenderness. No costovertebral tenderness. Full range of motion. Skin: Warm, dry with normal turgor. Normal color with no rashes, no lesions, and no evidence of cellulitis. Neuro: Awake and alert, GCS 15, oriented to person, place, time, and situation. Cranial nerves II-XII grossly intact. Motor strength 5/5 in all extremities. Sensory grossly intact. Cerebellar exam normal. Normal gait. Psych: Awake, alert, with orientation to person, place and time. Behavior, mood, and affect are within normal limits. 11:51 Musculoskeletal/extremity: ROM: no acute changes, intact in all extremities, full active range of motion, full passive range of motion, Circulation is intact in all extremities. Sensation intact. Compartment Syndrome exam of affected extremity: is normal. DVT Exam: negative Homans' sign noted on exam, no appreciated bluish discoloration, pain, swelling, tenderness, erythema, increased warmth, of the . Vital Signs: 11:31 BP 146 / 84; Pulse 82; Resp 16; Temp 98.0(TE); Pulse Ox 100% on R/A; Weight 86.18 kg; iw Height 5 ft. 3 in. (160.02 cm); Pain 2/10; 12:42 BP 118 / 72; Pulse 73; Resp 17; Pulse Ox 98% on R/A; tw2 11:31 Body Mass Index 33.66 (86.18 kg, 160.02 cm) iw MDM: 11:27 Patient medically screened. [facility] 06/15 11:50 Order name: US Extremity Venous Unilateral Ltd [facility] 06/15 11:50 Order name: Blood Glucose Level; Complete Time: 11:56 [facility] Administered Medications: 12:00 Drug: Bactrim (160 mg-800 mg (DS) 1 tablet Route: PO; tw2 12:44 Follow up: Response: No adverse reaction tw2 12:00 Drug: Doxycycline 200 mg Route: PO; tw2 12:45 Follow up: Response: No adverse reaction tw2 Point of Care Testing: Blood Glucose: 11:56 Blood Glucose: 96 mg/dL; tw2 Ranges: Critical Glucose Levels:Adult <50 mg/dl or >400 mg/dl <40 mg/dl or >180 mg/dl Disposition: 06/15/18 12:44 Discharged to Home. Impression: Cellulitis and acute lymphangitis of other parts of limb, Phlebitis and thrombophlebitis, Type 2 diabetes mellitus. - Condition is Stable. - Discharge Instructions: Type 2 Diabetes Mellitus, Diagnosis, Adult, Phlebitis, Cellulitis, Adult, [id number], Diabetes Mellitus and Food, Phlebitis, [id number], Type 2 Diabetes Mellitus, Diagnosis, Adult, Sdbn-sp-Euhk. - Prescriptions for Doxycycline Hyclate 100 mg Oral Tablet - take 1 tablet by ORAL route every 12 hours; 20 tablet. Motrin IB 200 mg Oral Tablet - take 2 tablet by ORAL route every 6 hours As needed as needed with food; 30 tablet. Bactrim DS 800- 160 mg Oral Tablet - take 1 tablet by ORAL route every 12 hours for 10 days; 20 tablet. - Medication Reconciliation Form, Thank You Letter, Antibiotic Education, Prescription Opioid Use form. - Follow up: Antonio Muñiz; When: 2 - 3 days; Reason: Recheck today's complaints, Continuance of care, Re-evaluation by your physician. - Problem is new. - Symptoms have improved. Signatures: Dispatcher [employer] EDMS Sudhir Peoples MD MD cha Williams, Irene, DARCIE RN iw Dee Dee Vital RN RN tw2 Corrections: (The following items were deleted from the chart) 12:52 12:44 06/15/2018 12:44 Discharged to Home. Impression: Cellulitis and acute tw2 lymphangitis of other parts of limb; Phlebitis and thrombophlebitis; Type 2 diabetes mellitus. Condition is Stable. Discharge Instructions: Phlebitis, Cellulitis, Adult, Gpsl-it-[id number], Phlebitis, Nitr-me-Vlmo, Type 2 Diabetes Mellitus, Diagnosis, Adult, Diabetes Mellitus and Food, Type 2 Diabetes Mellitus, Diagnosis, Adult, [id number]-[id number]. Prescriptions for Doxycycline Hyclate 100 mg Oral Tablet - take 1 tablet by ORAL route every 12 hours; 20 tablet, Motrin IB 200 mg Oral Tablet - take 2 tablet by ORAL route every 6 hours As needed as needed with food; 30 tablet, Bactrim DS 800-160 mg Oral Tablet - take 1 tablet by ORAL route every 12 hours for 10 days; 20 tablet. and Forms are Medication Reconciliation Form, Thank You Letter, Antibiotic Education, Prescription Opioid Use. Follow up: Antonio Muñiz; When: 2 - 3 days; Reason: Recheck today's complaints, Continuance of care, Re-evaluation by your physician. Problem is new. Symptoms have improved. philipp
--- NOTE | 2018-06-15 12:45 | ER ---
Nurse's Notes [facility] Name: Swathi Jay Age: 57 yrs Sex: Female : 1960 Arrival Date: 06/15/2018 Time: 11:19 Bed 14 Private MD: Antonio Muñiz V Diagnosis: Cellulitis and acute lymphangitis of other parts of limb;Phlebitis and thrombophlebitis;Type 2 diabetes mellitus Presentation: 06/15 11:28 Presenting complaint: Patient states: was seen in ER Saturday, had IV placed in LAC, was iw discharged yesterday at noon, noticed redness and swelling to IV site, pain when she bends her arm. Transition of care: patient was not received from another setting of care. Onset of symptoms was June 15, 2018. Risk Assessment: Do you want to hurt yourself or someone else? Patient reports no desire to harm self or others. Initial Sepsis Screen: Does the patient meet any 2 criteria? No. Patient's initial sepsis screen is negative. Does the patient have a suspected source of infection? No. Patient's initial sepsis screen is negative. Care prior to arrival: None. 11:28 Method Of Arrival: Ambulatory iw 11:28 Acuity: NICO 3 iw Triage Assessment: 12:51 General: Appears in no apparent distress. Behavior is calm, cooperative, appropriate tw2 for age. Historical: - Allergies: 11:30 Demerol; iw - Home Meds: 11:30 aspirin 81 mg Oral chew 1 tab once daily [Active]; Celecoxib Oral [Active]; HRT iw [Active]; levothyroxine oral [Active]; sertraline 50 mg Oral tab 1 tab once daily [Active]; telmisartan 40 mg Oral tab 1 tab once daily [Active]; - PMHx: 11:30 Diabetes - NIDDM; Hypertension; iw - PSHx: 11:30 knee replacement; oophorectomy; iw - Immunization history:: Adult Immunizations not up to date. - Social history:: Smoking status: Patient/guardian denies using tobacco. - Ebola Screening: : Patient negative for fever greater than or equal to 101.5 degrees Fahrenheit, and additional compatible Ebola Virus Disease symptoms Patient denies exposure to infectious person Patient denies travel to an Ebola-affected area in the 21 days before illness onset No symptoms or risks identified at this time. - Family history:: not pertinent. Screenin:50 Abuse screen: Denies threats or abuse. Nutritional screening: No deficits noted. tw2 Tuberculosis screening: No symptoms or risk factors identified. Fall Risk None identified. Assessment: 11:30 General: Appears in no apparent distress. obese, well groomed, Behavior is calm, tw2 cooperative, appropriate for age. Pain: Complains of pain in left antecubital area. Neuro: Level of Consciousness is awake, alert, obeys commands, Oriented to person, place, time, situation. Cardiovascular: Denies chest pain, shortness of breath, Capillary refill < 3 seconds Patient's skin is warm and dry. Respiratory: Airway is patent Respiratory effort is even, unlabored, Respiratory pattern is regular, symmetrical. GI: No signs and/or symptoms were reported involving the gastrointestinal system. : No signs and/or symptoms were reported regarding the genitourinary system. EENT: No signs and/or symptoms were reported regarding the EENT system. Derm: redness noted to LEFT ac. Musculoskeletal: Circulation, motion, and sensation intact. Range of motion: intact in all extremities. 12:42 Reassessment: Patient appears in no apparent distress at this time. No changes from tw2 previously documented assessment. Patient and/or family updated on plan of care and expected duration. Pain level reassessed. Patient is alert, oriented x 3, equal unlabored respirations, skin warm/dry/pink. Vital Signs: 11:31 BP 146 / 84; Pulse 82; Resp 16; Temp 98.0(TE); Pulse Ox 100% on R/A; Weight 86.18 kg; iw Height 5 ft. 3 in. (160.02 cm); Pain 2/10; 12:42 BP 118 / 72; Pulse 73; Resp 17; Pulse Ox 98% on R/A; tw2 11:31 Body Mass Index 33.66 (86.18 kg, 160.02 cm) iw ED Course: 11:19 Patient arrived in ED. mr 11:19 Antonio Muñiz MD is Private Physician. mr 11:26 Dee Dee Vital, DARCIE is Primary Nurse. tw2 11:27 Sudhir Peoples MD is Attending Physician. [facility] 11:29 Triage completed. iw 11:30 Bed in low position. Adult w/ patient. Pulse ox on. NIBP on. tw2 11:31 Arm band placed on. iw 12:43 Ultrasound completed. Patient tolerated well. Notified ED Physician cristian. sg3 12:43 Antonio Muñiz MD is Referral Physician. [facility] 12:50 No provider procedures requiring assistance completed. Patient did not have IV access tw2 during this emergency room visit. 13:09 US Extremity Venous Unilateral Ltd In Process Unspecified. EDMS Administered Medications: 12:00 Drug: Bactrim (160 mg-800 mg (DS) 1 tablet Route: PO; tw2 12:44 Follow up: Response: No adverse reaction tw2 12:00 Drug: Doxycycline 200 mg Route: PO; tw2 12:45 Follow up: Response: No adverse reaction tw2 Point of Care Testing: Blood Glucose: 11:56 Blood Glucose: 96 mg/dL; tw2 Ranges: Outcome: 12:44 Discharge ordered by . [facility] 12:50 Discharged to home ambulatory, with friend. tw2 12:50 Condition: stable 12:50 Discharge instructions given to patient, friend, Instructed on discharge instructions, follow up and referral plans. medication usage, Demonstrated understanding of instructions, follow-up care, medications, Prescriptions given X 3. 12:52 Patient left the ED. tw2 Signatures: Dispatcher [employer] EDMS Sudhir Peoples MD MD cha Rivera, Maria mr Freda Silva, RN RN Dee Dee Pinzon RN RN tw2 Swathi Bernal sg3
--- NOTE | 2018-06-15 13:31 | RAD REPORT ---
EXAM DESCRIPTION: VASExtremity Venous Uni Ltd06/15/2018 1:09 pm CLINICAL HISTORY: Left arm swelling and pain COMPARISON: None FINDINGS: Echogenic material consistent with acute thrombus is present within the cephalic vein with in the antecubital region. The left internal jugular, left subclavian, remainder of the left cephalic, left axillary, left brach ial, left basilic, left ulnar and left radial veins are generally compressible and demonstrate augmen tation. Doppler demonstrates good flow. IMPRESSION: Acute thrombus within the cephalic vein within the antecubital region
== END 2018-06-15 12:52 | disposition home or self-care (01) ==
LOC: ER 11:14
DX: L03.114 Cellulitis of left upper limb (principal); I89.1 Lymphangitis; I80.8 Phlebitis and thrombophlebitis of other sites; E11.9 Type 2 diabetes mellitus without complications; I10 Essential (primary) hypertension
CPT/HCPCS: 82962; 93971; 99284

== ENCOUNTER 2024-03-20 09:15 | Emergency (ER) | payer BC ==
[2024-03-20] MEDS ORDERED: FENTANYL CITR 100 MCG/2 ML ONE (09:35)
[2024-03-20] MEDS ORDERED: MUPIROCIN 2% OINT 22GM TUBE TOP ONE (09:35)
[2024-03-20] MEDS ORDERED: ONDANSETRON 4 MG/2 ML VIAL ONE (09:35)
[2024-03-20] MEDS ORDERED: NA CHLORIDE 0.9% 1,000 ML ONE (09:36)
[2024-03-20] MEDS ORDERED: CLINDAMYCIN 900MG/D5W 900 MG/50 ML IVPB IV ONE (09:36)
[2024-03-20] MEDS ORDERED: CEFAZOLIN SODIUM 2 GM/VIAL ONE (09:36)
[2024-03-20] MEDS ORDERED: NA CHLORIDE 0.9% 100 ML ONE (09:36)
[2024-03-20 09:40] LABS: Absolute Basophils 0.1 K/uL (0-0.5); Absolute Eosinophils 0.3 K/uL (0-0.5); Absolute Monocytes 0.8 K/uL (0.1-1.3); Absolute Neutrophil 7.9 K/uL (1.8-8.0); Basophils % 0.7 % (0-1.3); Eosinophils % 2.6 % (0-4.4); Hematocrit 36.1 % (36.0-45.0); Hemoglobin 12.6 g/dL (12.0-15.0); Lymphocytes % 30.3 % (15.3-44.8); MCH 30.4 pg (27.0-35.0); MCHC 34.7 g/dL (32.0-36.0); MCV 87.4 fL (80-100); MPV 8.3 fL (7.6-11.3); Monocytes % 6.1 % (3.3-12.3); Neutrophils % 60.3 % (41.7-73.7); Nucleated RBC Absolute Count 0.1 (0-0); Nucleated Red Blood Cells % 0.4 % (0-0); Platelets 179 thou/uL (152-406); RBC Red Blood Cell Count 4.13 M/uL (3.86-4.86); Red Cell Distribution Width 13.5 % (12.1-15.2)
[2024-03-20 10:08] LABS: Albumin 3.5 g/dL (3.4-5.0); Albumin/Globulin Ratio 0.9 (1.1-1.8); Anion Gap 7.1 mEq/L (5.0-15.0); Bilirubin Total 0.4 mg/dL (0.2-1.0); Potassium 4.1 mEq/L (3.5-5.1); Protein, Total 7.5 g/dL (6.4-8.2)
--- NOTE | 2024-03-20 11:11 | RAD REPORT ---
EXAM DESCRIPTION: CT - CTFBWCON CLINICAL HISTORY: SWELLING COMPARISON: Head Brain Wo Cont dated 03/20/2024 TECHNIQUE: Axial noncontrast thin cut CT images of the face were obtained with sagittal and coronal reconstruction images, following intravenous administration of 100 mL Isovue-300. All CT scans are performed using dose optimization technique as appropriate and may include automated exposure control or mA/KV adjustment according to patient size. FINDINGS: No acute facial bone fracture is seen.The mandible is intact. Mild soft tissue swelling along the left cheek, and adjacent to the crease of the left naris, with no appreciable fluid collection or underlying osseous destructive process. Scattered periapical lucencies, with small collections along the roots of the left maxillary first mo lar. No appreciable subperiosteal fluid collection. The globes and orbital contents are grossly unremarkable.Polypoidal mucosal thickening and possible m ucous retention cyst in the right sphenoid sinus. IMPRESSION: Mild soft tissue swelling along the left cheek and adjacent to the crease of the left na ris. This may be related to small periapical abscess along the root of the left maxillary for smaller . Please correlate with dental exam. No appreciable soft tissue collection/abscess formation.
[2024-03-20 11:13] LABS: Sqamous Epithelial <5 /HPF (None Seen); Urine Bacteria None Seen /HPF (<20); Urine Bilirubin NEGATIVE (Negative); Urine Blood Negative (Negative); Urine Clarity Clear (Clear); Urine Color Light-Yellow (Yellow); Urine Culture Reflex Order NOT NEEDED; Urine Glucose NEGATIVE (Negative); Urine Ketones NEGATIVE (Negative); Urine Microscopic Reflex YN ORDER UMIC; Urine Mucus Slight /HPF (None Seen); Urine Nitrite NEGATIVE (Negative); Urine Protein TRACE (Negative); Urine RBC <5 /HPF (None Seen); Urine Urobilinogen Normal (Normal); Urine WBC <5 /HPF (<5)
[2024-03-20 11:16] LABS: Specific Gravity > 1.030 (1.005-1.030)
--- NOTE | 2024-03-20 11:30 | RAD REPORT ---
EXAM DESCRIPTION: CT - Head Brain Wo Cont - 03/20/2024 10:24 am CLINICAL HISTORY: HEADACHE COMPARISON: Facial Bones W Con Mpr dated 03/20/2024 TECHNIQUE: Noncontrast head CT images were obtained without IV contrast. Multiplanar reformats were generated and reviewed. All CT scans are performed using dose optimization technique as appropriate and may include automated exposure control or mA/KV adjustment according to patient size. FINDINGS: No intracranial hemorrhage, mass, or edema. Midline structures are unremarkable. Normal ventricular caliber for age. Ventura-white matter differentiation is preserved, without evidence of acute infarct. No abnormal extra- axial fluid collections. Polypoidal mucosal thickening in the right sphenoid sinus. No acute bony findings. IMPRESSION: No evidence of an acute intracranial process.
--- NOTE | 2024-03-20 11:32 | ER ---
Nurse's Notes [facility] Name: Swathi Jay Age: 63 yrs Sex: Female : 1960 Arrival Date: 03/20/2024 Time: 09:15 Bed 5 Private MD: Diagnosis: Abscess, furuncle and carbuncle of nose Presentation: 03/20 09:17 Chief complaint: Patient states: "I have a sore on my nose and it's making the left aa5 side of my face swell up but I went to urgent care and they were concerned so they sent me here". Swelling noted to left cheek. Pt reports symptoms began 2 days ago. 09:17 Coronavirus screen: At this time, the client does not indicate any symptoms associated aa5 with coronavirus-19. Ebola Screen: Patient denies travel to an Ebola-affected area in the 21 days before illness onset. Initial Sepsis Screen: Does the patient meet any 2 criteria? No. Patient's initial sepsis screen is negative. Does the patient have a suspected source of infection? No. Patient's initial sepsis screen is negative. Risk Assessment: Do you want to hurt yourself or someone else? Patient reports no desire to harm self or others. Onset of symptoms was March 2024. 09:17 Acuity: NICO 2 aa5 09:17 Method Of Arrival: Ambulatory aa5 Historical: - Allergies: 09:27 Demerol; aa5 09:27 codeine sulfate; aa5 - PMHx: 09:27 Hypertension; Diabetes - NIDDM; Thyroid problem (Diabetes - NIDDM); aa5 - PSHx: 09:27 Right shoulder (Diabetes - NIDDM); Hysterectomy (Diabetes - NIDDM); aa5 - Immunization history:: Adult Immunizations unknown. - Infectious Disease History:: Denies. - Social history:: Smoking status: Patient denies any tobacco usage or history of. Screenin:26 [facility] ED Fall Risk Assessment (Adult) History of falling in the last 3 months, mb9 including since admission No falls in past 3 months (0 pts) Confusion or Disorientation No (0 pts) Intoxicated or Sedated No (0 pts) Impaired Gait No (0 pts) Mobility Assist Device Used No (0 pt) Altered Elimination No (0 pt) Score/Fall Risk Level 0 - 2 = Low Risk Oriented to surroundings, Maintained a safe environment, Educated pt \\T\\ family on fall prevention, incl call for assistance when getting out of bed. Abuse screen: Denies threats or abuse. Nutritional screening: No deficits noted. Tuberculosis screening: No symptoms or risk factors identified. Assessment: 09:25 General: Appears in no apparent distress. Behavior is calm, cooperative, anxious. Pain: mb9 Complains of pain in face Pain radiates to left side of face Pain currently is 8 out of 10 on a pain scale. Quality of pain is described as throbbing, Pain began gradually, Is continuous. Neuro: Mckay Agitation-Sedation Scale (RASS): 0 - Alert and Calm Level of Consciousness is awake, alert, obeys commands, Oriented to person, place, time, situation, Appropriate for age [employer] are equal bilaterally Moves all extremities. Gait is steady, Speech is normal, Facial symmetry appears normal, Pupils are PERRLA, Intact. Cardiovascular: Heart tones S1 S2 present Patient's skin is warm and dry. Rhythm is regular. Respiratory: Airway is patent Respiratory effort is even, unlabored, Respiratory pattern is regular, symmetrical, Breath sounds are clear bilaterally. GI: No signs and/or symptoms were reported involving the gastrointestinal system. : No signs and/or symptoms were reported regarding the genitourinary system. EENT: Oral mucosa is moist. Throat is clear. Derm: Skin is pink, warm \\T\\ dry. Musculoskeletal: Swelling present in face. 11:16 Reassessment: Patient appears in no apparent distress at this time. No changes from mb9 previously documented assessment. Patient and/or family updated on plan of care and expected duration. Pain level reassessed. Patient is alert, oriented x 3, equal unlabored respirations, skin warm/dry/pink. Vital Signs: 09:17 BP 182 / 92; Pulse 71; Resp 18 S; Temp 98.5(O); Pulse Ox 98% on R/A; Weight 106.59 kg aa5 (R); Height 5 ft. 3 in. (R); 10:08 BP 147 / 75; Pulse 77; Resp 16; Pulse Ox 97% on R/A; mb9 11:16 BP 138 / 69; Pulse 74; Resp 18; Pulse Ox 100% on R/A; mb9 09:17 Body Mass Index 41.63 (106.59 kg, 160.02 cm) aa5 ED Course: 09:17 Patient arrived in ED. eb 09:18 Radha Sullivan, DARCIE is Primary Nurse. mb9 09:19 Sudhir Peoples MD is Attending Physician. philipp 09:25 Arm band placed on. mb9 09:26 Placed in gown. Bed in low position. Call light in reach. Side rails up X 1. Provided mb9 Education on: press call light if needing anything. Client placed on continuous cardiac and pulse oximetry monitoring. NIBP monitoring applied. lunchroom monitor on. 09:27 Triage completed. aa5 09:34 Initial lab(s) drawn, by me, sent to lab. EKG done, by ED staff, reviewed by Sudhir Peoples MD. Inserted saline lock: 22 gauge in right antecubital area, using aseptic technique. Blood collected. 09:46 No provider procedures requiring assistance completed. mb9 10:25 CT Facial Bones W/ Con \\T\\ Mpr In Process Unspecified. EDMS 10:26 CT Head Brain wo Cont In Process Unspecified. EDMS 10:43 Urine collected: clean catch specimen, clear. mb9 11:32 Shahida Pérez MD is Referral Physician. philipp 11:35 Referral Physician role handed off by Shahida Pérez MD philipp 11:35 Columba Mancera MD is Referral Physician. philipp 11:41 IV discontinued, intact, bleeding controlled, No redness/swelling at site. Pressure mb9 dressing applied. Administered Medications: 09:35 Drug: Ondansetron IVP 4 mg IVP once; over 2 minutes Route: IVP; Site: right antecubital;mb9 10:09 Follow up: Response: No adverse reaction mb9 09:37 Drug: fentaNYL (PF) IVP 25 mcg IVP once Route: IVP; Site: right antecubital; mb9 10:09 Follow up: Response: No adverse reaction mb9 09:37 Drug: fentaNYL (PF) IVP 25 mcg IVP once Route: IVP; Site: right antecubital; mb9 10:09 Follow up: Response: No adverse reaction mb9 09:40 Drug: NS 0.9% IV 1000 ml IV at 1 bolus Per protocol; 1000 mL bolus Route: IV; Rate: 1 mb9 bolus; Site: right antecubital; 10:45 Follow up: Response: No adverse reaction; IV Status: Completed infusion mb9 09:40 Drug: Clindamycin IVPB 900 mg IVPB once over 30 mins; (mix in 50 mL) Route: IVPB; mb9 Infused Over: 30 mins; Site: right antecubital; 10:08 Follow up: Response: No adverse reaction; IV Status: Completed infusion mb9 09:45 Drug: Mupirocin Topical Ointment 2 % 1 application Topical once; nares Route: Topical; mb9 Site: affected area; 10:09 Follow up: Response: No adverse reaction mb9 10:08 Drug: ceFAZolin IVPB 2 grams IVPB once over 30 mins; (mix in 100 mL NS) Route: IVPB; mb9 Infused Over: 30 mins; Site: right antecubital; 10:45 Follow up: Response: (VIS) Vaccine information sheet provided today. Questions and/or mb9 concerns addressed. VIS edition date: Jun 16, 2021.; IV Status: Completed infusion Medication: 09:27 VIS not applicable for this client. mb9 Outcome: 11:32 Discharge ordered by MD. segal 11:41 Discharged to home ambulatory, with family, mb9 11:41 Condition: stable 11:41 Discharge instructions given to patient, Instructed on discharge instructions, follow up and referral plans. Demonstrated understanding of instructions, follow-up care, medications, Prescriptions given X 4, 11:41 Patient left the ED. mb9 Signatures: Dispatcher [employer] Sudhir Acuña MD MD cha Calderon, Audri, RN RN aa5 Carina Berman Mary Beth, RN RN mb9
--- NOTE | 2024-03-20 11:33 | EDPHYS ---
Physician Documentation [facility] Name: Swathi Jay Age: 63 yrs Sex: Female : 1960 Arrival Date: 03/20/2024 Time: 09:15 Bed 5 Private MD: ED Physician Sudhir Peoples HPI: 03/20 10:42 This 63 yrs old Female presents to ER via Ambulatory with complaints of Nasal philipp sore and left cheek swelling. 10:42 The patient presents with nasal drainage. Onset: The symptoms/episode began/occurred 4 philipp day(s) ago. Modifying factors: The symptoms are alleviated by nothing. the symptoms are aggravated by nothing. Associated signs and symptoms: Loss of consciousness: the patient experienced no loss of consciousness. Severity of symptoms: At their worst the symptoms were moderate in the emergency department the symptoms are unchanged. Historical: - Allergies: 09:27 Demerol; aa5 09:27 codeine sulfate; aa5 - PMHx: 09:27 Hypertension; Diabetes - NIDDM; Thyroid problem (Diabetes - NIDDM); aa5 - PSHx: 09:27 Right shoulder (Diabetes - NIDDM); Hysterectomy (Diabetes - NIDDM); aa5 - Immunization history:: Adult Immunizations unknown. - Infectious Disease History:: Denies. - Social history:: Smoking status: Patient denies any tobacco usage or history of. ROS: 10:42 Constitutional: Negative for fever, chills, and weight loss, Eyes: Negative for injury, philipp pain, redness, and discharge, Neck: Negative for injury, pain, and swelling, Cardiovascular: Negative for chest pain, palpitations, and edema, Respiratory: Negative for shortness of breath, cough, wheezing, and pleuritic chest pain, Abdomen/GI: Negative for abdominal pain, nausea, vomiting, diarrhea, and constipation, Back: Negative for injury and pain, : Negative for injury, bleeding, discharge, and swelling, MS/Extremity: Negative for injury and deformity, Skin: Negative for injury, rash, and discoloration, Neuro: Negative for headache, weakness, numbness, tingling, and seizure, Psych: Negative for depression, anxiety, suicide ideation, homicidal ideation, and hallucinations, Allergy/Immunology: Negative for hives, rash, and allergies, Endocrine: Negative for neck swelling, polydipsia, polyuria, polyphagia, and marked weight changes, Hematologic/Lymphatic: Negative for swollen nodes, abnormal bleeding, and unusual bruising, 10:42 ENT: Positive for of the left nostril, 10:42 Skin: Positive for abscess, cellulitis, Exam: 10:42 Constitutional: This is a well developed, well nourished patient who is awake, alert, philipp and in no acute distress. Eyes: Pupils equal round and reactive to light, extra-ocular motions intact. Lids and lashes normal. Conjunctiva and sclera are non-icteric and not injected. Cornea within normal limits. Periorbital areas with no swelling, redness, or edema. Neck: Trachea midline, no thyromegaly or masses palpated, and no cervical lymphadenopathy. Supple, full range of motion without nuchal rigidity, or vertebral point tenderness. No Meningismus. Chest/axilla: Normal chest wall appearance and motion. Nontender with no deformity. No lesions are appreciated. Cardiovascular: Regular rate and rhythm with a normal S1 and S2. No gallops, murmurs, or rubs. Normal PMI, no JVD. No pulse deficits. Respiratory: Lungs have equal breath sounds bilaterally, clear to auscultation and percussion. No rales, rhonchi or wheezes noted. No increased work of breathing, no retractions or nasal flaring. Abdomen/GI: Soft, non-tender, with normal bowel sounds. No distension or tympany. No guarding or rebound. No evidence of tenderness throughout. Back: No spinal tenderness. No costovertebral tenderness. Full range of motion. Skin: Warm, dry with normal turgor. Normal color with no rashes, no lesions, and no evidence of cellulitis. 10:42 Head/face: Noted is swelling, tenderness, that is moderate, of the nose, mouth and left jaw, 11:06 ECG was reviewed by the Attending Physician. [facility] 11:26 ENT: Mouth: Lips: normal, Oral mucosa: normal, Gums: normal with healthy appearance, no philipp dental pain, Vital Signs: 09:17 BP 182 / 92; Pulse 71; Resp 18 S; Temp 98.5(O); Pulse Ox 98% on R/A; Weight 106.59 kg aa5 (R); Height 5 ft. 3 in. (R); 10:08 BP 147 / 75; Pulse 77; Resp 16; Pulse Ox 97% on R/A; mb9 11:16 BP 138 / 69; Pulse 74; Resp 18; Pulse Ox 100% on R/A; mb9 09:17 Body Mass Index 41.63 (106.59 kg, 160.02 cm) aa5 MDM: 09:19 Patient medically screened. [facility] 10:44 Differential diagnosis: abscess, cellulitis. Data reviewed: vital signs, nurses notes, [facility] lab test result(s), radiologic studies, CT scan. Consideration of Admission/Observation Escalation of care including admission/observation considered. I considered the following discharge prescriptions or medication management in the emergency department Medications were administered in the Emergency Department. See MAR. Test considered but Not performed: Ultrasound no facial usg. 03/20 09:28 Order name: CBC with Diff; Complete Time: 10:29 [facility] 03/20 09:28 Order name: Comprehensive Metabolic Panel; Complete Time: 10:29 [facility] 03/20 09:28 Order name: Urinalysis w/ reflexes; Complete Time: 11: [facility] 03/20 09:32 Order name: Glucose, Ancillary Testing; Complete Time: 10:29 EDMS 03/20 09:28 Order name: CT Facial Bones W/ Con \T\ Mpr; Complete Time: 11:31 [facility] 03/20 09:28 Order name: CT Head Brain wo Cont; Complete Time: 11:31 [facility] 03/20 09:28 Order name: EKG - Nurse/Tech; Complete Time: 09:34 [facility] EC:06 Rate is 65 beats/min. Rhythm is regular. QRS [place] is Normal. QT interval is normal. No [facility] Q waves. T waves are Normal. Clinical impression: NSR w/ Non-specific ST/T Changes and No evidence of ischemia. Interpreted by me. Reviewed by me. Administered Medications: 09:35 Drug: Ondansetron IVP 4 mg IVP once; over 2 minutes Route: IVP; Site: right antecubital;mb9 10:09 Follow up: Response: No adverse reaction mb9 09:37 Drug: fentaNYL (PF) IVP 25 mcg IVP once Route: IVP; Site: right antecubital; mb9 10:09 Follow up: Response: No adverse reaction mb9 09:37 Drug: fentaNYL (PF) IVP 25 mcg IVP once Route: IVP; Site: right antecubital; mb9 10:09 Follow up: Response: No adverse reaction mb9 09:40 Drug: NS 0.9% IV 1000 ml IV at 1 bolus Per protocol; 1000 mL bolus Route: IV; Rate: 1 mb9 bolus; Site: right antecubital; 10:45 Follow up: Response: No adverse reaction; IV Status: Completed infusion mb9 09:40 Drug: Clindamycin IVPB 900 mg IVPB once over 30 mins; (mix in 50 mL) Route: IVPB; mb9 Infused Over: 30 mins; Site: right antecubital; 10:08 Follow up: Response: No adverse reaction; IV Status: Completed infusion mb9 09:45 Drug: Mupirocin Topical Ointment 2 % 1 application Topical once; nares Route: Topical; mb9 Site: affected area; 10:09 Follow up: Response: No adverse reaction mb9 10:08 Drug: ceFAZolin IVPB 2 grams IVPB once over 30 mins; (mix in 100 mL NS) Route: IVPB; mb9 Infused Over: 30 mins; Site: right antecubital; 10:45 Follow up: Response: (VIS) Vaccine information sheet provided today. Questions and/or mb9 concerns addressed. VIS edition date: Jun 16, 2021.; IV Status: Completed infusion Disposition Summary: 03/20/24 11:32 Discharge Ordered Notes: Location: Home philipp Problem: new philipp Symptoms: have improved philipp Condition: Stable philipp Diagnosis - Abscess, furuncle and carbuncle of nose philipp Followup: philipp - With: Private Physician - When: 2 - 3 days - Reason: Recheck today's complaints, Continuance of care, Re-evaluation by your physician Followup: philipp - With: Shahida Pérez MD - When: 2 - 3 days - Reason: Recheck today's complaints, Re-evaluation by your physician Followup: philipp - With: Columba Mancera MD - When: 2 - 3 days - Reason: Recheck today's complaints, Re-evaluation by your physician Discharge Instructions: - Discharge Summary Sheet philipp - Skin Abscess philipp - Cellulitis, Adult philipp - Cellulitis, Adult, [id number] philipp - Nasal Abscess philipp Forms: - Medication Reconciliation Form philipp - Antibiotic Education philipp - Prescription Opioid Use philipp - Patient Portal Instructions philipp - Leadership Thank You Letter philipp Prescriptions: - Centany 2 % Topical ointment - apply 1 application TOPICAL route 3 times per day; 15 gram tube; Refills: 0, [facility] Product Selection Permitted - Cephalexin 500 mg Oral Capsule - take 1 capsule ORAL route every 6 hours for 10 days; 40 capsule; Refills: 0, [facility] Product Selection Permitted - Clindamycin HCl 300 mg Oral Capsule - take 1 capsule ORAL route every 6 hours for 10 days; 40 capsule; Refills: 0, [facility] Product Selection Permitted - Motrin IB 200 mg Oral tablet - take 2 tablet ORAL route every 6 hours As needed as needed with food; 30 philipp tablet; Refills: 0, Product Selection Permitted Signatures: Dispatcher [employer] EDMS Sudhir Peoples MD MD cha Calderon, Audri RN RN aa5 Radha Sullivan RN RN mb9 Corrections: (The following items were deleted from the chart) 09: 09:28 CBC+H.LAB.BRZ ordered. EDMS EDMS : 09:28 COMPREHENSIVE METABOLIC PANEL+C.LAB.BRZ ordered. EDMS EDMS 09:28 Urinalysis+U.LAB.BRZ ordered. EDMS EDMS 09: 09:29 Facial Bones W/ Con \T\ MPR+CT.RAD.BRZ ordered. EDMS EDMS 09: 09:29 Head Brain Wo Cont+CT.RAD.BRZ ordered. EDMS EDMS
[2024-03-20 12:01] VITALS: BP 138/69; TEMP 98.5; O2SAT 100
--- NOTE | 2024-03-23 13:27 | EKG ---
Test Date: 2024-03-20 Test Time: 09:32:00 Hair Worker: MB MEASUREMENT RESULTS: Intervals: Rate: 65 UT: 140 QRSD: 86 QT: 430 QTc: 447 [place]: P: 61 UT: 140 QRS: 58 T: 56 INTERPRETIVE STATEMENTS: Normal sinus rhythm Cannot rule out Anterior infarct, age undetermined Abnormal ECG Compared to ECG 06/13/2018 06:00:34 Sinus arrhythmia no longer present Myocardial infarct finding still present Electronically Signed On 03-23-24 13:18:59 CDT by Ted Alcala
== END 2024-03-20 11:41 | disposition home or self-care (01) ==
LOC: ER 09:15
DX: J34.0 Abscess, furuncle and carbuncle of nose (principal); E11.9 Type 2 diabetes mellitus without complications; I10 Essential (primary) hypertension; Z88.5 Allergy status to narcotic agent
CPT/HCPCS: 96365; 96367; 85025; 81001; 36415; 82947; 80053; 70450; 70487; 76377; 96375; 99285; Q9967; J3010; J2405; J7030; 93005